=== PATIENT | male | born 1980 | race Caucasian/White ===

== ENCOUNTER 2019-06-01 14:00 | Outpatient (RCR) | payer BC, SELFPAY ==
[2019-03-23 09:26] VITALS: BMI 53.1
[2019-03-23 09:40] VITALS: BMI 53.1
== END 2019-06-21 23:59 | disposition home or self-care (01) ==
LOC: ANHDMC 14:00
DX: E66.3 Overweight (principal); Z71.3 Dietary counseling and surveillance; Z68.43 Body mass index [BMI] 50.0-59.9, adult
CPT/HCPCS: 97802